=== PATIENT | female | born 1945 | race Caucasian/White ===

== ENCOUNTER → 2019-08-29 | Outpatient (CLI) | payer MEDICARE, MEDICAID ==
[~2019-08-29] MED LIST: ACET1TAB55 PO; ATOR1TAB21 PO; BACITAB PO; BIMA01SOL OU; CHOLPOW39 XX; CLON0.5T2 PO; DOCU10CA PO; ELIQ5TAB PO; FERG27TA PO; FLUO20CA20 PO; GLUC5TAB3 PO; HYDR1OIN2 TOP; INSUDET SC; LANTINJ4 SC; LASI40TA9 PO; LEVE250T5 PO; LIPI20TA PO; LOPR1TAB6 PO; MILK120011 PO; MULT1TAB7 PO; NEUR300C PO; NORV5TAB PO; NOVOINJ3 SC; OMEP-221 PO; PROTPAK PO; PROZ40CA PO; SENO8.6T5 PO; SERT-138 PO; SUCR1SS PO; THERTAB30 PO; VITA-243 PO; VITA100066 PO; XALA0.007 OP; ZOFR8TAB24 PO
== END ==
LOC: M ONCR 09:40
PROVIDERS: ATTEND Radiology Radiation Oncology
DX: C85.89 Other specified types of non-Hodgkin lymphoma, extranodal and solid organ sites (principal)